=== PATIENT | female | born 1965 | race Two or more races ===

== ENCOUNTER 2018-04-04 15:18 | Emergency (ER) | payer OTHER ==
[~2018-04-04] VITALS: Ht 165.1 cm; Wt 72.6 kg
[2018-04-04 15:30] VITALS: BP 151/79
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
[2018-04-04] MEDS ORDERED: Acetaminophen 500mg (ES) tab ORAL ONE (15:45)
[2018-04-04] MEDS ORDERED: Methocarbamol 500mg tab ORAL ONE (15:45)
[2018-04-04] MEDS ORDERED: TYLENOL EXTRA500 MG ORAL (16:32)
[2018-04-04] MEDS ORDERED: ROBAXIN500 MG PO (16:32)
[2018-04-04] MEDS ORDERED: LIDOCAINE700 M1 TP (16:32)
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
[2018-04-04 17:17] VITALS: BP 137/77
--- NOTE | 2018-04-05 13:29 | Diagnostic Imaging Report ---
Indication: Status post nasogastric tube placement Technique: Supine view of the abdomen Comparison: 03/28/2018 Findings: Demonstrated is a nasogastric tube, tip projected level gastric body, proximal port well beyond the gastroesophageal junction, in satisfactory position. Visualized bowel gas and lung bases are unremarkable Impression: Satisfactory nasogastric intubation This agrees with the preliminary interpretation provided overnight by [facility] service.
== END 2018-04-04 16:40 | disposition home or self-care (01) ==
LOC: EMR 15:53
DX: S16.1XXA Strain of muscle, fascia and tendon at neck level, initial encounter (principal); S39.012A Strain of muscle, fascia and tendon of lower back, initial encounter; V43.52XA Car driver injured in collision with other type car in traffic accident, initial encounter; Y92.410 Unspecified street and highway as the place of occurrence of the external cause
CPT/HCPCS: 72020; 72040; 99283